=== PATIENT | female | born 1945 | race Caucasian/White ===

== ENCOUNTER → 2016-10-22 | Outpatient (CLI) | payer OTHER ==
[~2016-10-22] MED LIST: LORTAB 7.5/5001 TA1 PO; STOOL SOFTENER100 MG PO
== END ==
LOC: COL.RAD 07:31
PROVIDERS: Neurological Surgery
DX: M47.896 Other spondylosis, lumbar region (principal); M48.04 Spinal stenosis, thoracic region
CPT/HCPCS: A9585

== ENCOUNTER 2018-05-17 05:08 | Emergency (ER) | payer MEDICARE, OTHER ==
[2018-05-17 06:12] LABS: COLLECTION METHOD CLEAN CATCH
[2018-05-17 06:19] LABS: BASO % 0.1 % (0.0-2.0); GRAN # 10.8 (1.4-6.5); HEMOGLOBIN 11.3 g/dl (12.5-16.0); LYMPH # 0.7 (1.2-3.4); LYMPH % 5.5 % (20.0-51.0); MEAN CELL VOLUME 91 fl (80.0-100.0); MEAN CORPUSCULAR HEMOGLOBIN 30 pg (27.0-31.0); MEAN CORPUSCULAR HGB CONC 33 g/dl (33.0-37.0); MEAN PLATELET VOLUME 9.5 fl (7.4-10.4); MONO # 1.7 (0.1-0.6); MONO % 12.8 % (1.7-9.3); PLATELET COUNT 232 K/mm3 (130-400); RED BLOOD COUNT 3.83 M/mm3 (4.10-5.30); REDCELL DISTRIBUTION WIDTH-CV 12.6 % (11.5-14.5)
[2018-05-17] MEDS ORDERED: CYMBALTA 30MG30 MG PO (06:19)
[2018-05-17] MEDS ORDERED: FLONASE NASAL S16 GM NS (06:19)
[2018-05-17] MEDS ORDERED: NORCO 325 MG-51 TAB PO (06:20)
[2018-05-17 06:21] LABS: HEMATOCRIT 34.7 % (37.0-47.0)
[2018-05-17] MEDS ORDERED: PRINIVIL10 MG PO (06:21)
[2018-05-17] MEDS ORDERED: CYMBALTA 60MG60 MG PO (06:22)
[2018-05-17 06:26] LABS: ALBUMIN 3.5 gm/dL (3.5-5.0); BILIRUBIN,TOTAL 1.1 mg/dL (0.0-1.0); CALCIUM 8.3 mg/dL (8.4-10.2); CREATININE, serum 1.1 mg/dL (0.52-1.25); POTASSIUM 4.6 mmol/L (3.4-5.0); TOTAL PROTEIN 6.9 gm/dL (6.4-8.2)
[2018-05-17 06:29] LABS: MUCOUS Present /lpf; PH 5 (5-8); SQUAMOUS EPITHELIAL 0-2 /hpf; URINE APPEARANCE Cloudy; URINE BACTERIA Rare /hpf; URINE BILIRUBIN Negative (NEGATIVE); URINE BLOOD 2+ (NEGATIVE); URINE COLOR Yellow; URINE GLUCOSE Negative (NEGATIVE); URINE KETONE Trace (NEGATIVE); URINE LEUKOCYTE ESTERASE 2+ (NEGATIVE); URINE NITRATE Positive (NEGATIVE); URINE PROTEIN(semi-quant) 1+ (NEGATIVE); URINE RBC 20-50 /hpf; URINE UROBILINOGEN Negative (NEGATIVE)
[2018-05-17] MEDS ORDERED: CEFTIN500 MG PO (07:52)
[2018-05-17 08:22] VITALS: BP 116/61; PULSE 86; TEMP 100.1
== END 2018-05-17 08:24 | disposition home or self-care (01) ==
LOC: COL.ER 05:08
PROVIDERS: Emergency Medicine
DX: R22.0 Localized swelling, mass and lump, head (principal); N39.0 Urinary tract infection, site not specified; I10 Essential (primary) hypertension; Z79.899 Other long term (current) drug therapy
CPT/HCPCS: A4216; J0696; J2765; J3010; J7030

== ENCOUNTER 2018-06-04 01:39 | Emergency (ER) | payer MEDICARE, OTHER ==
[~2018-06-04] VITALS: Ht 154.9 cm; Wt 68.2 kg
[~2018-06-04 01:39] MED LIST changes: +CEFTIN500 MG PO; +CYMBALTA 30MG30 MG PO; +CYMBALTA 60MG60 MG PO; +FLONASE NASAL S16 GM NS; +NORCO 325 MG-51 TAB PO; +PRINIVIL10 MG PO
[2018-06-04 01:40] VITALS: TEMP 96.9
[2018-06-04] MEDS ORDERED: ADVIL200 MG PO (01:44)
[2018-06-04 02:18] LABS: COLLECTION METHOD CLEAN CATCH
[2018-06-04 02:23] LABS: BASO # 0.1 (0.0-0.2); BASO % 0.3 % (0.0-2.0); EOS # 0.1 (0.0-0.7); EOS % 0.9 % (0-4.0); GRAN # 12.9 (1.4-6.5); GRAN % 78.8 % (42.2-75.2); HEMATOCRIT 41.2 % (37.0-47.0); HEMOGLOBIN 13.1 g/dl (12.5-16.0); LYMPH # 2.3 (1.2-3.4); MEAN CELL VOLUME 92 fl (80.0-100.0); MEAN CORPUSCULAR HEMOGLOBIN 29 pg (27.0-31.0); MEAN CORPUSCULAR HGB CONC 32 g/dl (33.0-37.0); MEAN PLATELET VOLUME 9.7 fl (7.4-10.4); MONO # 0.9 (0.1-0.6); MONO % 5.5 % (1.7-9.3); PLATELET COUNT 296 K/mm3 (130-400); REDCELL DISTRIBUTION WIDTH-CV 13.2 % (11.5-14.5)
[2018-06-04 02:26] LABS: MUCOUS Present /lpf; PH 5 (5-8); SQUAMOUS EPITHELIAL 0-2 /hpf; URINE APPEARANCE Clear; URINE BACTERIA None Seen /hpf; URINE BILIRUBIN Negative (NEGATIVE); URINE BLOOD Negative (NEGATIVE); URINE COLOR Yellow; URINE GLUCOSE Negative (NEGATIVE); URINE KETONE Negative (NEGATIVE); URINE LEUKOCYTE ESTERASE 2+ (NEGATIVE); URINE NITRATE Negative (NEGATIVE); URINE PROTEIN(semi-quant) Negative (NEGATIVE); URINE RBC 0-2 /hpf; URINE UROBILINOGEN Negative (NEGATIVE)
[2018-06-04 02:37] LABS: BLOOD UREA NITROGEN 40 mg/dL (7-17); GLUCOSE 112 mg/dL (74-106)
[2018-06-04 02:38] LABS: ALANINE AMINOTRANSFERASE 34 U/L (9-52); ALBUMIN 4.3 gm/dL (3.5-5.0); ALKALINE PHOSPHATASE 93 U/L (50-136); ANION GAP 10 mmol/L (7-16); AST,SGOT 31 U/L (15-37); BILIRUBIN,TOTAL 0.9 mg/dL (0.0-1.0); C-REACTIVE PROTEIN < 0.5 mg/dL (0.0-0.9); CALCIUM 9.3 mg/dL (8.4-10.2); CARBON DIOXIDE 22 mmol/L (22-30); CHLORIDE 108 mmol/L (98-107); CREATININE, serum 1.28 mg/dL (0.52-1.25); LIPASE 98 U/L (23-300); SODIUM 140 mmol/L (137-145); TOTAL PROTEIN 7.8 gm/dL (6.4-8.2)
[2018-06-04] MEDS ORDERED: ZOFRAN ODT4 MG PO (04:29)
[2018-06-04] MEDS ORDERED: OMNICEF 300MG300 MG PO (04:29)
[2018-06-04] MEDS ORDERED: FLAGYL500 MG PO (04:29)
[2018-06-04 05:56] VITALS: BP 146/86; PULSE 72
== END 2018-06-04 06:04 | disposition home or self-care (01) ==
LOC: COL.ER 01:39
PROVIDERS: Emergency Medicine
DX: K52.9 Noninfective gastroenteritis and colitis, unspecified (principal); N39.0 Urinary tract infection, site not specified; Z90.710 Acquired absence of both cervix and uterus
CPT/HCPCS: J2405; J7030; J7040

== ENCOUNTER → 2019-04-14 | Outpatient (CLI) | payer MEDICARE, OTHER ==
[~2019-04-14] MED LIST changes: +ADVIL200 MG PO; +FLAGYL500 MG PO; +OMNICEF 300MG300 MG PO; +ZOFRAN ODT4 MG PO
== END ==
LOC: COL.RAD 09:40
DX: N13.30 Unspecified hydronephrosis (principal); Z85.528 Personal history of other malignant neoplasm of kidney; Z90.5 Acquired absence of kidney

== ENCOUNTER 2020-09-20 20:43 | Emergency (ER) | payer MEDICARE, OTHER ==
[~2020-09-20] VITALS: Ht 154.9 cm; Wt 65.9 kg
[2020-09-20 21:24] VITALS: BP 137/74
[2020-09-20] MEDS ORDERED: DOXYCYCLINE 10100 MG PO (23:30)
[2020-09-21 00:43] VITALS: PULSE 73
== END 2020-09-21 00:46 | disposition home or self-care (01) ==
LOC: COL.ER 20:43
DX: S61.411A Laceration without foreign body of right hand, initial encounter (principal); S50.11XA Contusion of right forearm, initial encounter; S20.212A Contusion of left front wall of thorax, initial encounter; Z88.0 Allergy status to penicillin; Z88.1 Allergy status to other antibiotic agents; Z88.8 Allergy status to other drugs, medicaments and biological substances; Z88.6 Allergy status to analgesic agent; Z87.891 Personal history of nicotine dependence; W55.41XA Bitten by pig, initial encounter; Y92.59 Other trade areas as the place of occurrence of the external cause; Y99.0 Civilian activity done for income or pay

== ENCOUNTER → 2020-12-01 | Outpatient (CLI) | payer MEDICARE, OTHER ==
[~2020-12-01] MED LIST changes: +DOXYCYCLINE 10100 MG PO
== END ==
LOC: COL.RAD 06:54
DX: Z85.528 Personal history of other malignant neoplasm of kidney (principal); Z90.5 Acquired absence of kidney